=== PATIENT | female | born 1940 | race Caucasian/White ===

== ENCOUNTER 2017-09-03 15:22 | Emergency (ER) | payer MEDICARE, MEDICAID ==
[~2017-09-03] VITALS: Ht 157.5 cm; Wt 46.5 kg
[~2017-09-03 15:22] MED LIST: ANAPROX PO; BUSPAR15 MG PO; NEXIUM40 MG PO; PROPRANOLOL 8080 MG PO; ZOCOR 10 MG TAB10 MG PO
[2017-09-03 15:41] LABS: URINE BILIRUBIN NEGATIVE (Negative); URINE BLOOD TRACE (Negative); URINE CLARITY CLEAR; URINE COLOR YELLOW; URINE GLUCOSE-RANDOM NEGATIVE (Negative); URINE KETONES NEGATIVE (Negative); URINE LEUKOCYTES-REFLEX NEGATIVE (Negative); URINE NITRITE-REFLEX NEGATIVE (Negative); URINE PROTEIN NEGATIVE (Negative); URINE SPECIFIC GRAVITY >= 1.030 (1.005-1.030)
[2017-09-03 15:55] VITALS: BP 151/67
== END 2017-09-03 15:56 | disposition home or self-care (01) ==
LOC: M.ERS 15:22
PROVIDERS: Nurse Practitioner Family
DX: Z71.1 Person with feared health complaint in whom no diagnosis is made (principal); I10 Essential (primary) hypertension; E78.00 Pure hypercholesterolemia, unspecified; F03.90 Unspecified dementia, unspecified severity, without behavioral disturbance, psychotic disturbance, mood disturbance, and anxiety; Z88.6 Allergy status to analgesic agent; Z90.49 Acquired absence of other specified parts of digestive tract